=== PATIENT | female | born 1970 ===

== ENCOUNTER → 2017-04-01 | Outpatient (CLI) | payer OTHER, MEDICARE ==
[~2017-04-01] MED LIST: ATEN25; EPIN.3I; FENT25TP; HYDACE10B; HYDACE5 PO; IBUP600; IBUP800 PO; Imitrex50 MG; META800 PO; Methimazole5 MG; PSEU120ER
[2017-04-01 14:12] LABS: Source, Urine Clean Catch
[2017-04-01 16:01] LABS: Leukocyte Esterase, Urine 2+ (Neg)
[2017-04-01 16:15] LABS: Glucose Qualitative, Urine Neg (Normal); Ketones, Urine Neg (Neg)
[2017-04-01 16:18] LABS: Appearance, Urine Hazy (Clear); Blood, Urine 1+ (Neg); Color, Urine Orange (P-Yellow)
[2017-04-01 16:19] LABS: Bacteria Many /hpf; Squamous Epithelial Cells Mod /hpf (Few); White Blood Cells, Urine TNTC /hpf (0-5)
[2017-04-01 16:20] LABS: Mucus Heavy (0-Heavy)
[2017-04-01 16:21] LABS: Granular Casts Rare /lpf (0); Renal Epithelial Mod /hpf (0-Rare); Transitional Epithelial Cells Few /hpf (0-Rare)
== END | disposition home or self-care (01) ==
LOC: LAB EV 14:11
PROVIDERS: Nurse Practitioner Family
DX: R30.0 Dysuria (principal)
CPT/HCPCS: 81001; 87077; 87086; 87186

== ENCOUNTER → 2021-08-18 | Outpatient (CLI) | payer BC, MEDICARE | END | disposition home or self-care (01) | LOC: LAB 14:30 → LAB SHORT 14:30 | DX: R30.0 Dysuria (principal) | CPT/HCPCS: 87077; 87086; 87186 ==